=== PATIENT | female | born 1965 | race Caucasian/White ===

== ENCOUNTER → 2017-03-31 | Outpatient (CLI) | payer OTHER ==
[~2017-03-31] MED LIST: ALBUTEROL0.09 MG/A2 IH; ANAPROX DS550 MG PO; ANTIVERT/2525 M1 PO; ASPIRIN81 M1 PO; ATIVAN0.5 MG; ATIVAN1 MG PO; BACTRIM DS 8001 TA1 PO; CLARITIN10 MG PO; COMBIVENT1 ARO IH; DULE1ARO1 INH; EFFEXOR XR150 M1 PO; EFFEXOR XR75 MG PO; EFFEXOR-XR150 MG PO; FENOFIBRATE160 MG PO; FLOVENT 220 M220 MCG INH; FOLIC ACID1 MG PO; HYDROCODONE BIT1 T11 PO; KEFLEX500 MG PO; LITHIUM CARBON450 MG PO; Lovenox30 MG/0.3 SC; MEDROL DOSEPAK4 MG PO; MOTRIN800 MG PO; NAPROSYN500 MG PO; NATURE'S BLEND F1 MG PO; NUVIGIL250 MG PO; PROAIR HFA0.09 MG/AC IH; SEROQUEL25 MG PO; SEROQUEL300 MG PO; SIMVASTATIN20 MG PO; SINGULAIR10 M1 PO; SYMBICORT1 AE1 IH; TOPAMAX100 M1 PO; TOPAMAX200 MG PO; VALIUM5 MG PO; VISTARIL25 M1 PO; VITAMIN D50000 UNIT PO; Vicodin 5/500 505 MG PO; WELLBUTRIN XL300 MG PO; XARE20MG PO; XARELTO15 M1 PO; ZANTAC150 MG PO; ZITHROMAX Z PA250 MG PO; ZITHROMAX Z-PA250 MG PO; ZOFRAN4 MG PO
== END | disposition home or self-care (01) ==
LOC: CARD 11:04
DX: R07.9 Chest pain, unspecified (principal)

== ENCOUNTER → 2017-10-24 | Outpatient (CLI) | payer OTHER | END | disposition home or self-care (01) | LOC: US 07:25 | DX: K76.0 Fatty (change of) liver, not elsewhere classified (principal); Z90.49 Acquired absence of other specified parts of digestive tract ==

== ENCOUNTER 2018-01-26 19:07 | Emergency (ER) | payer OTHER ==
[~2018-01-26] VITALS: Ht 175.2 cm; Wt 122.5 kg
[2018-01-26 19:09] VITALS: BP 122/63
[2018-01-26] MEDS ORDERED: NAPROSYN500 MG PO (19:54)
[2018-01-26] MEDS ORDERED: NORCO 5-325 TA1 EACH PO (20:43)
== END 2018-01-26 20:49 | disposition home or self-care (01) ==
LOC: ED 19:07
DX: S82.832A Other fracture of upper and lower end of left fibula, initial encounter for closed fracture (principal); S92.902A Unspecified fracture of left foot, initial encounter for closed fracture; Z88.1 Allergy status to other antibiotic agents; Z79.899 Other long term (current) drug therapy; Z86.718 Personal history of other venous thrombosis and embolism; W01.0XXA Fall on same level from slipping, tripping and stumbling without subsequent striking against object, initial encounter; Y93.89 Activity, other specified; Y92.89 Other specified places as the place of occurrence of the external cause; Y99.8 Other external cause status

== ENCOUNTER → 2018-01-27 | Outpatient (CLI) | payer OTHER ==
[~2018-01-27] MED LIST changes: +NORCO 5-325 TA1 EACH PO
== END | disposition home or self-care (01) ==
LOC: RAD 08:00 → ORTHO 13:01
DX: S92.102A Unspecified fracture of left talus, initial encounter for closed fracture (principal); M19.011 Primary osteoarthritis, right shoulder; R60.9 Edema, unspecified; X58.XXXA Exposure to other specified factors, initial encounter; Y93.89 Activity, other specified; Y92.89 Other specified places as the place of occurrence of the external cause; Y99.8 Other external cause status

== ENCOUNTER → 2018-05-05 | Outpatient (CLI) | payer OTHER | END | disposition home or self-care (01) | LOC: US 12:37 | DX: I65.23 Occlusion and stenosis of bilateral carotid arteries (principal); E04.2 Nontoxic multinodular goiter; R41.3 Other amnesia ==

== ENCOUNTER 2019-05-22 10:31 | Inpatient (IN) | payer OTHER ==
[~2019-05-22] VITALS: Ht 175.2 cm; Wt 122.0 kg
--- NOTE | ~2019-05-22 | CON ---
[place], [place] REPORT OF CONSULTATION NAME: ASHLIE SOUTH UNIT #: [id number] ROOM: 416 DOCTOR: SUSAN PALACIOS MDCLAUDIA BIRTHDATE: [birth year] DOS: 05/23/2019 PULMONARY CONSULTATION, EVALUATION AND MANAGEMENT REASON FOR CONSULTATION: Assess the patient for acute exacerbation of pulmonary disease. HISTORY OF PRESENT ILLNESS: A 53-year-old white female patient who has been known to me with multiple medical problems, has been managed in the office. The patient has been admitted to the hospital under the hospitalist service as the patient has been reported progressive increased respiratory symptoms ongoing for past 1 week. She has been noted progressive chest congestion, nonproductive sputum with increasing shortness of breath, wheezing and chest tightness. The patient presented to the Emergency Room and has been admitted to the hospital under care of the primary care physician. The patient has not been reported symptoms of hemoptysis or any chest pain. She has been noted with partial reduction and improvement of respiratory symptom afterwards. REVIEW OF SYSTEMS: CONSTITUTIONAL: Fatigue and tiredness noted without any symptoms of fever or chills. EYES: Denies any burning, redness, or tenderness. EARS, NOSE, THROAT SYMPTOMS: No sore throat, otalgia, posterior drainage or epistaxis. CARDIOVASCULAR: Denies any anginal pain, edema of the lower extremities or pain. GASTROINTESTINAL: History of chronic obesity without any abnormal weight loss or dysphagia. Denied symptoms of nausea, vomiting, diarrhea, abdominal pain, hematemesis, melena, or hematochezia. CENTRAL NERVOUS SYSTEM: No dizziness, headache, diplopia or syncopal episode. SKIN: No lesions or rashes reported. MUSCULOSKELETAL: No joint pain, redness, or tenderness. Remaining systems were reviewed. They were noted all negative. PAST MEDICAL HISTORY: 1. COPD. 2. Uncomplicated moderate persistent bronchial asthma and acute allergic rhinitis. 3. Obstructive sleep apnea disorder. 4. General anxiety disorder. 5. History of depression. 6. Essential hypertension. 7. Hyperlipidemia. PAST SURGICAL HISTORY: 1. Complete hysterectomy. 2. Urinary tract infection. 3. [place] teeth removal. 4. Bilateral cataract extraction and lens implantation. [place], [place] REPORT OF CONSULTATION NAME: ASHLIE SOUTH Sandi UNIT #: [id number] ROOM: [facility] DOCTOR: SUSAN PALACIOS MDCLAUDIA BIRTHDATE: [birth year] SOCIAL HISTORY: The patient lives at home. Denies any history of alcohol use or any illicit drug use. Tobacco use was noted at the age of [age] years old, half a pack of cigarettes per day until 2009 The patient is . FAMILY HISTORY: The patient's father at 62 years with complication of coronary artery disease. Mother is living without any known medical illnesses. CURRENT MEDICATIONS: Administered were noted as Singulair, Pristiq ER, aspirin, Lovenox for DVT prophylaxis, omeprazole, trazodone, Seroquel, Solu-Medrol 40 mg q.8 hours, DuoNeb, Ativan, Rocephin, Zithromax, and some other p.r.n. meds. DRUG ALLERGIES: NOTED : 1. LEVAQUIN. 2. IODINE. PHYSICAL EXAMINATION: GENERAL: This is a 53-year-old female patient currently noted awake and alert without any distress. Height of 5 feet 9 inches, weight of 270 pounds, BMI 39.7. VITAL SIGNS: The patient has a normal temperature 99 degree Fahrenheit, respiratory rate 20-21, heart rate of 81-65, blood pressure 132/70-136/72. Pulse oxygen saturation 2.5 liters nasal cannula 93% saturation recorded. HEENT: Head is atraumatic. Eyes: Nonicterus. NECK: Supple. CARDIOVASCULAR: S1, S2 audible. LUNGS: Noted expiratory wheezing with decreased breath sounds. There were no crackles heard. ABDOMEN: Soft, obese, nontender. Bowel sounds present. EXTREMITIES: The patient with chronic obesity finding without edema, clubbing, or cyanosis. MUSCULOSKELETAL: Noted without any acute deformities. CENTRAL NERVOUS SYSTEM: Noted intact. LABORATORY DATA: CMP that was done yesterday, glucose 129, remaining CMP normal including troponin. PT/PTT yesterday normal. CBC yesterday was noted as normal CBC for patient except eosinophils of 2.3% with WBC count 7.8. Influenza A and B, nasal washing antigens were negative. CBC this morning remains normal, hemoglobin and hematocrit, WBC count. BMP: Glucose 165. Normal BUN and creatinine. PT/PTT repeated again today was negative. Chest x-ray that was done on admission reviewed from the PACS images noted without any acute pulmonary infiltrates. IMPRESSION: 1. Acute exacerbation of chronic obstructive pulmonary disease and bronchial asthma noted and acute bronchitis, possibility of viral bronchitis would be considered. 2. Chronic obesity as well. 3. History of obstructive sleep apnea disorder as well. [place], [place] REPORT OF CONSULTATION NAME: ASHLIE SOUTH UNIT #: [id number] ROOM: 416 DOCTOR: SUSAN PALACIOS MD,CLAUDIA BIRTHDATE: [birth year] PLAN OF MANAGEMENT: Continue dose of Solu-Medrol for the next 24 hours, reduction will be ordered based on improvement in the respiratory symptoms and status. In the meantime, other therapy, plan of management as in progress will be continued without any changes. Usual care. All other supportive plan of management, care plan of treatment and other therapies. Thanks for allowing me to participate in the care of this patient. CLAUDIA DAVIS MD CM:CONSTR:REPORT OF CONSULTATION 1442 05/23/19 1620 interface
--- NOTE | ~2019-05-22 | PR ---
[place], [place] PROGRESS NOTE NAME: ASHLIE SOUTH UNIT #: [id number] ROOM: 416 DOCTOR: CLAUDIA FOSTER MD BIRTHDATE: [birth year] DOS: 05/26/2019 SUBJECTIVE: She has bronchoscopy done yesterday with significant reduction in respiratory symptoms noticed, still reported symptoms of wheezing. The patient has some nonproductive cough. Denies symptoms of chest pain, hemoptysis. Denies symptoms of headache or diplopia, nausea, vomiting, diarrhea, abdominal pain, hematemesis, or melena. Denies symptoms of dizziness. Remaining systems were reviewed, they were noted all negative. OBJECTIVE: VITAL SIGNS: For the patient this morning, normal temperature, respiratory rate 20, heart rate 72, blood pressure 152/80. Pulse ox saturation on 2 liters nasal cannula 93% saturation recorded. HEENT: Examination shows head was atraumatic. Eyes nonicterus. NECK: Supple. CARDIOVASCULAR: S1, S2 audible. LUNGS: Noted with expiratory wheezing. There were no crackles. ABDOMEN: Soft, obese, nontender. Bowel sounds present. EXTREMITIES: No acute changes. MUSCULOSKELETAL: Without acute deformities. CENTRAL NERVOUS SYSTEM: The patient noted intact. LABORATORY DATA: The Gram stain of the bronchial wash, many white blood cell, few epithelial cells, few gram-positive cocci in pairs and clusters. IMPRESSION: The patient with ongoing acute exacerbation of chronic obstructive pulmonary disease, bronchial asthma, mucus impaction, status post bronchoscopy, reduction in wheezing, reduction of the respiratory symptom, coughing. The wheezing has been still noted, not completely resolved. The culture noted normal tamera. PLAN OF MANAGEMENT: No changes in plan of management at this time. Continue current plan of management, monitor culture results. Bronchodilators. Possible discharge home for the patient may be considered in the morning. Dose of Solu-Medrol will be decreased to 40 mg b.i.d. dosing. [place], [place] PROGRESS NOTE NAME: ASHLIE SOUTH UNIT #: [id number] ROOM: 416 DOCTOR: CLAUDIA FOSTER MD BIRTHDATE: [birth year] CLAUDIA DAVIS MD CM:PNTRANS [id number] CLAUDIA PALACIOS MD 05/26/19 1509 interface
--- NOTE | ~2019-05-22 | PROC NOTE ---
[place], [place] PROCEDURE NOTE NAME: ASHLIE SOUTH UNIT #: [id number] ROOM: 416 DOCTOR: SUSAN PALACIOS MD,CLAUDIA BIRTHDATE: [birth year] DOS: 05/25/2019 PREOPERATIVE DIAGNOSIS: Severe nonresolving cough, which was nonproductive. POSTOPERATIVE DIAGNOSES: Severe impacted mucus noted with ongoing inflammatory changes and friable mucosa, no endobronchial lesions. COMPLICATIONS: None. PROCEDURE DESCRIPTION: Informed consent obtained with the patient. The patient brought to the OR. The patient was placed in a supine position. Conscious sedation was administered by the Anesthesia Department. After achieving proper sedation, airway introduced into the mouth. Bronchoscope advanced to airway into laryngeal area. Epiglottis and vocal cords were seen. Vocal cords were moving symmetrically with movements. Bronchoscope advanced through the vocal to the tracheal lumen noted with moderate amount of thick mucus secretion with some bilious secretion through the gita level. Right upper, right middle, right lower, left upper, lingula, lower bronchi all impacted. Thick plugs of the mucus significant friability of mucosa noted, especially in the left main stem bronchus at the bronchial openings. All the mucus plug cleared up with half normal saline wash without any difficulty. Some bleeding was noted because of agitation, friability of mucosa. A 5 mL of 1:10,000 epinephrine was lavaged that area. The patient does not have any bleeding actively prior to withdrawal of the bronchoscope. Procedure well tolerated. Postoperative findings will be discussed with the patient once the patient noted with resolution of the effects of conscious sedation. CLAUDIA DAVIS MD CM:PROCNOTE:PROCEDURE NOTE [id number] CLAUDIA PALACIOS MD
--- NOTE | ~2019-05-22 | PR ---
[place], [place] PROGRESS NOTE NAME: ASHLIE SOUTH UNIT #: [id number] ROOM: 416 DOCTOR: CLAUDIA FOSTER MD BIRTHDATE: [birth year] DOS: 05/24/2019 SUBJECTIVE: The patient's overall condition remains the same but noted severe cough, currently complaining of headache because of nonproductive cough. Denies symptoms of fever, chills. Chest pain, the patient reported just because of the cough. Wheezing and shortness of breath remains unchanged. Denies symptoms of headache or diplopia. Denies symptoms of nausea, vomiting, diarrhea, abdominal pain, hematemesis, melena, or hematochezia. She denies symptoms of diplopia. Remaining systems were reviewed, they were noted all negative. OBJECTIVE: VITAL SIGNS: Vital signs, which are recorded, shows normal temperature, respiratory rate 20, heart rate 66, blood pressure 135/63. Pulse oxygen saturation on 3.5 liters nasal cannula 95% saturation recorded. HEENT: Examination shows head was atraumatic. Eyes nonicterus. NECK: Supple. CARDIOVASCULAR: S1, S2 audible. LUNGS: Noted expiratory wheezing with decreased breath sounds bilaterally. There were no crackles. ABDOMEN: Soft, nontender. Bowel sounds present. EXTREMITIES: No acute change. IMPRESSION: 1. Stable respiratory status, noted the same respiratory status, nonproductive cough at this time with ongoing acute exacerbation of chronic obstructive pulmonary disease and bronchial asthma. 2. Obstructive sleep apnea disorder. PLAN OF MANAGEMENT: The patient was suggested therapeutic bronchoscopy for assessment of current severe nonproductive cough and to clear the mucus impaction in major airways. The patient agreed for the procedure. Procedure was scheduled to be done tomorrow morning. [place], [place] PROGRESS NOTE NAME: ASHLIE SOUTH UNIT #: [id number] ROOM: 416 DOCTOR: CLAUDIA FOSTER MD BIRTHDATE: [birth year] CLAUDIA DAVIS MD CM:PNTRANS [id number] CLAUDIA PALACIOS MD 05/24/19 6290 interface
--- NOTE | ~2019-05-22 | EKG ---
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
--- NOTE | ~2019-05-22 | PR ---
[place], [place] PROGRESS NOTE NAME: ASHLIE SOUTH UNIT #: [id number] ROOM: 416 DOCTOR: CLAUDIA FOSTER MD BIRTHDATE: [birth year] DOS: 05/25/2019 SUBJECTIVE: The patient was noted comfortable at this time without any acute distress this morning of assessment. She has been noted similar symptoms of nonproductive cough, which remains severe. Denies symptoms of fever or chills. Headache was still noted with coughing. Denies symptoms of diplopia. Denies nausea, vomiting, diarrhea, abdominal pain, hematemesis, and melena. She is n.p.o. past midnight for bronchoscopy that was planned to be done today. The review of system otherwise noted is negative. OBJECTIVE: VITAL SIGNS: For the patient, which are recorded showed the temperature noted as normal. The respiratory rate recorded as 20, heart rate of 79, blood pressure 140/86. Pulse oxygen saturation on 3 liters nasal cannula 95% saturation. HEAD, EYES, EARS, NOSE, AND THROAT: Examination shows head was atraumatic. Eyes nonicterus. NECK: Supple. CARDIOVASCULAR SYSTEM: S1, S2 audible. LUNGS: Noted with expiratory wheezing, no crackles. ABDOMEN: Soft with chronic obesity. Bowel sounds present. EXTREMITIES: Without acute edema. MUSCULOSKELETAL: Without acute deformity. LABORATORY DATA: The patient's CBC today noted essentially normal. BMP this morning, glucose mildly elevated at 162. Remaining CMP was normal. IMPRESSION: 1. Acute severe tracheobronchitis with acute exacerbation of chronic obstructive pulmonary disease secondary to cough 2. Chronic obesity. 3. History of obstructive sleep apnea disorder. PLAN OF MANAGEMENT: No change in plan of care, proceed with the fibrobronchoscopy that was planned to be done today. In the meantime, continue other therapy, plan of management, plan of care, plan of treatment, therapy. Usual care. Any modification treatment if necessary will be ordered after the bronchoscopy. [place], [place] PROGRESS NOTE NAME: ASHLIE SOUTH UNIT #: [id number] ROOM: 416 DOCTOR: CLAUDIA FOSTER MD BIRTHDATE: [birth year] CLAUDIA DAVIS MD CM:PNSAMSON [id number] CLAUDIA PALACIOS MD 05/25/19 1526 interface
[~2019-05-22 10:31] MED LIST changes: +ASPIR 8181 MG PO; +LORAZEPAM1 MG PO; +PRILOSEC20 M1 PO; +PRISTIQ ER25 MG PO; +PROAIR HFA8.5 GM INH; +SEROQUEL100 MG PO; +TRAZODONE100 MG PO; +VITAMIN D32000 UNI1 PO
[2019-05-22 10:37] VITALS: BP 195/95
[2019-05-22 11:10] LABS: BASO # 0.1 10*3/uL (0.0-0.1); BASO % 0.6 % (0.0-1.0); EOS # 0.2 10*3/uL (0.0-0.4); EOS % 2.3 % (1.0-4.0); HEMATOCRIT 43.1 % (37.0-47.0); HEMOGLOBIN 13.6 g/dl (12.0-16.0); LYMPH # 3.1 10*3/uL (1.3-4.4); LYMPH % 39.7 % (27.0-41.0); MEAN CELL VOLUME 87.1 fl (81.0-99.0); MEAN CORPUSCULAR HGB 27.5 pg (27.0-31.0); MEAN CORPUSCULAR HGB CONC 31.6 g/dl (33.0-37.0); MEAN PLATELET VOLUME 9.1 fl (9.6-12.3); MONO # 0.4 10*3/uL (0.1-1.0); MONO % 5.1 % (3.0-9.0); NEUT # 4.1 10*3/uL (2.3-7.9); PLATELET COUNT AUTOMATED 299 10*3/uL (130-400); RED BLOOD COUNT 4.95 10*6/uL (4.10-5.10); WHITE BLOOD COUNT 7.8 10*3/uL (4.8-10.8)
[2019-05-22 11:17] LABS: INTERNATIONAL NORM RATIO 0.9 (2.0-3.5)
[2019-05-22 11:25] LABS: ALBUMIN 3.9 gm/dl (3.1-4.5); ALKALINE PHOSPHATASE 103 U/L (45-117); BUN 12 mg/dl (7-24); CHLORIDE 106 mmol/L (98-107); CREATININE 0.81 mg/dL (0.55-1.02); POTASSIUM 4.3 mmol/L (3.5-5.1); SGOT/AST 16 IU/L (3-35); SGPT/ALT 24 U/L (12-78); SODIUM 139 mmol/L (136-145); TOTAL PROTEIN 7.5 gm/dL (6.4-8.2)
[2019-05-22 11:30] LABS: TROPONIN I < 0.015 ng/ml (<0.045)
[2019-05-22 12:01] VITALS: BP 110/79
[2019-05-22 14:25] VITALS: BP 134/66
[2019-05-22] MEDS ORDERED: PREDNISONE20 M1 PO (14:29)
[2019-05-22] MEDS ORDERED: VIBRAMYCIN100 MG PO (14:30)
[2019-05-22] MEDS ORDERED: Ipratropium Brom3 ML INH (14:34)
--- NOTE | 2019-05-22 14:43 | NUR ---
PT AMBULATED TO NURSES STATION SAYING "I CAN'T FIND MY WALLET IN MY PURSE AND I NEVER TAKE MY WALLET OUT OF MY PURSE." WHEN AMBULATING BACK TO ROOM 2 PT BECAME INCREASINGLY SOB AND DECIDED INSTEAD OF GOING HOME WOULD LIKE TO BE ADMITTED. DR SPANGLER AWARE. RN AND PT LOOKED IN ROOM 2 AND NOT ABLE TO OBTAIN WALLET. PT STATES "I AM NOT SURE WHERE I LEFT IT AND CAN'T GET A HOLD OF MY SON WHO HAS MY CAR."
[2019-05-22 14:48] VITALS: BP 142/70
--- NOTE | 2019-05-22 15:26 | NUR ---
PT STATES 'I THINK MY SON MIGHT OF TAKEN MY WALLET OUT OF MY PURSE BEFORE I CAME INTO THE HOSPITAL."
--- NOTE | 2019-05-22 15:45 | NUR ---
A 53, admitted to , under the services of RAY Yañez DO with a diagnosis of COPD EXAC. Chief complaint is SHORTNES OF BREATH. Patient arrived via stretcher from ER. Monitor applied. Initial assessment completed. Vital signs taken and recorded. RAY YAÑEZ DO notified of admission to the unit. Orders received. See assessment for past medical history, medications and allergies. Patient and/or family oriented to unit. [address] visitation policy reviewed. Clothing/patient valuable form completed. ELA RYAN
[2019-05-22 16:00] VITALS: BP 137/74
--- NOTE | 2019-05-22 16:08 | NUR ---
DR DAVIS NOTIFIED OF CONSULT.
--- NOTE | 2019-05-22 16:11 | NUR ---
MED REC UPDATED PER PT. DR VALLES NOTIFIED.
--- NOTE | 2019-05-22 18:35 | NUR ---
PT HAD CALL LIGHT ON, UPON ENTERINMG ROOM. PT VERY SHORT OF BREATH. [address] VALLES NOTIFIED, ABG ORDERED.
--- NOTE | 2019-05-22 19:08 | NUR ---
ATIVAN PO GIVEN FOR C/O ANXIETY. CALL LIGHT IN REACH. WILL MONITOR
[2019-05-22 20:00] VITALS: BP 134/67
[2019-05-22 20:15] LABS: ABG BASE EXCESS 1.1 mmol/L (-2.0-2.0); ABG HCO3 25.1 mmol/l (22-26); ABG O2 SATURATION 96.2 % (95-97); ARTERIAL BLOOD GAS PCO2 39.1 mmHg (35-45); ARTERIAL BLOOD GAS PH 7.422 (7.35-7.45); ARTERIAL BLOOD GAS PO2 74.2 mmHg (80-90)
[2019-05-23] VITALS: BP 122/70
[2019-05-23 06:09] LABS: BASO % 0.2 % (0.0-1.0); BUN 16 mg/dl (7-24); CHLORIDE 105 mmol/L (98-107); CHOLESTEROL 167 mg/dL (<200); CREATININE 0.73 mg/dL (0.55-1.02); EOS # 0.2 10*3/uL (0.0-0.4); HEMATOCRIT 38.5 % (37.0-47.0); HEMOGLOBIN 12.3 g/dl (12.0-16.0); LYMPH # 1.1 10*3/uL (1.3-4.4); LYMPH % 18.4 % (27.0-41.0); MEAN CELL VOLUME 85.4 fl (81.0-99.0); MEAN CORPUSCULAR HGB 27.3 pg (27.0-31.0); MEAN CORPUSCULAR HGB CONC 31.9 g/dl (33.0-37.0); MEAN PLATELET VOLUME 9.4 fl (9.6-12.3); MONO # 0.1 10*3/uL (0.1-1.0); MONO % 1.5 % (3.0-9.0); NEUT # 4.6 10*3/uL (2.3-7.9); NEUT % 76.2 % (47.0-73.0); PLATELET COUNT AUTOMATED 280 10*3/uL (130-400); POTASSIUM 3.8 mmol/L (3.5-5.1); RED BLOOD COUNT 4.51 10*6/uL (4.10-5.10); RED CELL DISTRI WIDTH 14.1 % (0-14.5); SODIUM 138 mmol/L (136-145); TRIGLYCERIDES 82 mg/dl (<150); VLDL CHOLESTEROL 16 mg/dL (6-40)
[2019-05-23 06:17] LABS: HDL CHOLESTEROL 66 mg/dl (40-60); LDL CHOLESTEROL 85 mg/dL (9-159); THYROID STIM HORMONE (HS) 0.242 uIU/ml (0.358-4.75)
[2019-05-23 06:31] LABS: ACT PARTIAL THROMBO TIME 25.3 SECONDS (20.0-32.1); INTERNATIONAL NORM RATIO 0.9 (2.0-3.5)
[2019-05-23 08:19] LABS: VITAMIN D, 25-HYDROXY 29.3 ng/mL (30-100)
--- NOTE | 2019-05-23 08:26 | NUR ---
PT REQUESTED AND WAS MEDICATED WITH NORCO FOR C/O HEADACHE. DYSPNEA WITH EXERTION STILL NOTED. O2 3L IN PLACE. CALL LIGHT IN REACH. WILL MONITOR
--- NOTE | 2019-05-23 09:30 | NUR ---
MEDICATION EFFECTIVE PER PT. CALL LIGHT IN REACH. WILL MONITOR
[2019-05-23 12:00] VITALS: BP 136/72
--- NOTE | 2019-05-23 13:45 | NUR ---
PEBBLES EFFECTIVE PER PT. CALL LIGHT IN REACH. WILL MONITOR
[2019-05-23 16:00] VITALS: BP 119/61
--- NOTE | 2019-05-23 16:31 | NUR ---
PT REQUESTED AND WAS MEDICATED WITH NORCO FOR C/O HEADACHE. CALL LIGHT IN REACH. WILL MONITOR
--- NOTE | 2019-05-23 17:30 | NUR ---
MEDICATION EFECTIVE. CALL LIGHT IN REACH. WILL MONITOR
[2019-05-23 20:00] VITALS: BP 124/62
--- NOTE | 2019-05-23 21:00 | NUR ---
PATIENT LAYING IN BED WATCHING TV. PRN NORCO GIVEN FOR C/O HEADACHE PER REQUEST. PATIENT CONTINUES ON 3 L NC. WHEEZES HEARD IN RIGHT LUNG. DIMINISHED LUNG SOUNDS HEARD ON LEFT. BS NORMOACTIVE X4. LAST BOWEL MOVEMENT ON 05/20. PER PATIENT THIS IS NORMAL FOR HER TO GO 3-4 DAYS WITHOUT A BOWEL MOVEMENT. CALL LIGHT WITHIN REACH.
--- NOTE | 2019-05-23 21:45 | NUR ---
PRN NORCO EFFECTIVE PER PATIENT.
--- NOTE | 2019-05-23 22:47 | NUR ---
24 HR chart check completed.
[2019-05-24] VITALS: BP 119/61
--- NOTE | 2019-05-24 06:20 | NUR ---
PATIENT LAYING IN BED ON 3 L NC. NO ACUTE DISTRESS NOTED. NO OTHER COMPLAINTS AT THIS TIME. CALL LIGHT WITHIN REACH.
[2019-05-24 08:00] VITALS: BP 135/63
--- NOTE | 2019-05-24 09:00 | NUR ---
Checker Loader in to talk to patient. Patient states lives at home with son. There are few steps in the home. Physician: jessee campos Pharmacy: [facility] services: none Patient's level of ADLs: INDEPENDENT Patient has working utilities: all working DME: none Follow-up physician's appointment after d/c: will be made by hospitalist nurse director upon discharge Does patient want to access PORTAL?: no] Discharge plan discussed with patient, she states she lives at home with her son, is independent in adls and ambulation, she states she will be returning home when medically stable and denies any home needs. RAMEZ VARNER
--- NOTE | 2019-05-24 10:43 | NUR ---
PT DECLINES TO AMBULATE IN HALLS AT THIS TIME. SHE STATES SHE'S "TOO TIRED" WILL ATTEMPT AGAIN LATER. CALL LIGHT IN REACH. WILL MONITOR
[2019-05-24 12:00] VITALS: BP 129/54
--- NOTE | 2019-05-24 14:00 | NUR ---
PT REQUESTED AND WAS MEDICATED WITH NORCO FOR C/O HEADACHE. CALL LIGHT IN REACH. WILL MONITOR
[2019-05-24 16:00] VITALS: BP 143/63
--- NOTE | 2019-05-24 16:28 | NUR ---
uP ON bsc bathing, harsh BS . face flushed.
--- NOTE | 2019-05-24 19:32 | NUR ---
PATIENT SITTING UP IN BED ON 3 L NC. PATIENT STATED SHE DID NOT WALK TODAY WITH RESPIRATORY BECAUSE IT TOOK EVERYTHING OUT OF HER TO WALK TO THE BATHROOM AND GET CLEANED UP. PRN NORCO GIVEN FOR C/O A HEADACHE. WILL MONITOR FOR EFFECTIVENESS. CALL LIGHT WITHIN REACH.
[2019-05-24 20:00] VITALS: BP 132/64
--- NOTE | 2019-05-24 20:20 | NUR ---
PRN NORCO EFFECTIVE PER PATIENT.
--- NOTE | 2019-05-24 23:00 | NUR ---
REPORT RECIEVED. PT SLEEPING AT THIS TIME. O2 INTACT. RESPIRATIONS EASY AND UNLABORED. CALL LIGHT IN REACH.
[2019-05-25] VITALS (9 sets, daily range): BP systolic 99–137; BP diastolic 53–98
--- NOTE | 2019-05-25 00:40 | NUR ---
24 HR chart check completed.
--- NOTE | 2019-05-25 00:53 | NUR ---
24 HR chart check completed.
--- NOTE | 2019-05-25 01:00 | NUR ---
PT SLEEPING AT THIS TIME. O2 INTACT. CALL LIGHT IN REACH.
--- NOTE | 2019-05-25 03:00 | NUR ---
PT IS SLEEPING
--- NOTE | 2019-05-25 05:03 | NUR ---
PT WATCHING TV, LYING IN BED AT THIS TIME. RESPIRATIONS EASY AND UNLABORED. NC INTACT. CALL LIGHT IN REACH.
--- NOTE | 2019-05-25 05:46 | NUR ---
PT MEDICATED WITH NORCO PER ORDER FOR COMPLAINT OF GENERALIZED PAIN. WILL MONITOR EFFECTIVENESS.
[2019-05-25 06:06] LABS: BASO % 0.1 % (0.0-1.0); HEMOGLOBIN 11.7 g/dl (12.0-16.0); LYMPH # 1.4 10*3/uL (1.3-4.4); MEAN CELL VOLUME 88.4 fl (81.0-99.0); MEAN CORPUSCULAR HGB 27.2 pg (27.0-31.0); MEAN CORPUSCULAR HGB CONC 30.8 g/dl (33.0-37.0); MEAN PLATELET VOLUME 9.6 fl (9.6-12.3); MONO # 0.4 10*3/uL (0.1-1.0); MONO % 4.4 % (3.0-9.0); NEUT # 7.7 10*3/uL (2.3-7.9); PLATELET COUNT AUTOMATED 277 10*3/uL (130-400); RED CELL DISTRI WIDTH 14.5 % (0-14.5); WHITE BLOOD COUNT 9.6 10*3/uL (4.8-10.8)
[2019-05-25 06:15] LABS: BUN 23 mg/dl (7-24); CHLORIDE 105 mmol/L (98-107); POTASSIUM 4.3 mmol/L (3.5-5.1); SODIUM 139 mmol/L (136-145)
--- NOTE | 2019-05-25 09:00 | NUR ---
case management visits with patient, she states she will return home when medically stable and denies any home needs
--- NOTE | 2019-05-25 10:17 | NUR ---
PT REQUESTED AND WAS MEDICATED WITH NORCO FOR C/O HEADACHE. CALL LIGHT IN REACH. WILL MONITOR
--- NOTE | 2019-05-25 14:24 | NUR ---
PHYSICAL THERAPY Eval completed see report moderate level of complexity 22078 recommend SNF vs Inpt rehab at discharge as well as OT consult for energy conservation. PT to work on transfers, gait, strength and endurance stair as/if approp. thanks Anni Lovell PT
--- NOTE | 2019-05-25 19:10 | NUR ---
REPORT RECEIVED FROM LILA MEDINA. PT AWAKE AT THIS TIME. RESPIRATIONS EASY AND UNLABORED. NO COMPLAINTS AT THIS TIME.
[2019-05-26] VITALS: BP 105/41
--- NOTE | 2019-05-26 01:24 | NUR ---
Patient resting quietly with no c/o discomfort. Respirations easy and regular. Vital signs stable. No overt distress. OXYGEN ON 3L VIA NC. CALL LIGHT WITHIN REACH HISSOM,STEPHANIE
--- NOTE | 2019-05-26 01:57 | NUR ---
24 HR chart check completed.
--- NOTE | 2019-05-26 04:17 | NUR ---
Patient sleeping. Respirations relaxed and easy. [place] up . [place] on. BED ALARM ON. OXYGEN 3L VIA NASAL CANNULA INTACT. CALL LIGHT WITHIN REACH HISSOM,STEPHANIE
[2019-05-26 08:00] VITALS: BP 134/74; BP 152/80
--- NOTE | 2019-05-26 09:00 | NUR ---
case management visits with patient, discussed with her physical therapy recommendation that she go to a short term halfway for rehab prior to returning home, patient declined, stated she was ambulating fine and had family at home to care for her, also discussed VNA and she also declines this, case management will follow
--- NOTE | 2019-05-26 09:45 | NUR ---
PHYSICAL THERAPY Patient seen this am 1;1 for therapy visit and was standing in hallway [facility] Respiratory visit upon therapist arrival. Patient identified by name / and reports no new c/o's at this time. Patient ambulates without AD, ad mic in hallway, > 150'x 1, SBA, demonstrating slow, cautious gait pattern. Patient also demonstrated improved upright posture and returned to EOB sit with mild fatigue. Patient SpO2 92% on O2-2L via NC and remained EOB with call light, tray table, and cell phone. Will continue per POC as tolerated, total treatment time 14 minutes. Kolby Garcia, INSURANCE ANALYST
[2019-05-26] MEDS ORDERED: PREDNISONE10 MG PO (11:23)
[2019-05-26] MEDS ORDERED: OXYGEN NAS (11:23)
[2019-05-26] MEDS ORDERED: VITAMIN D32000 UNI1 PO (11:23)
[2019-05-26] MEDS ORDERED: DOXYCYCLINE100 M3 PO (11:23)
--- NOTE | 2019-05-26 11:42 | NUR ---
PULSE OX ON R/A AT REST 88%, PT. AMBULATED IN [place] ON 2L, PULSE OX 90 TO 92%. PT. TOLERATED WELL, RECOVERY PULSE OX WAS 93% ON 2 AT REST, HEART RATE 77. B/P PRIOR TO WALK 152/80 AND AFTER WALK 132/73. RN AND DR. BURGOS NOTIFIED. O2 WILL BE SET UP WITH [facility], PT HAS A CPAP WITH [facility] ALREADY.
[2019-05-26 12:00] VITALS: BP 143/81
--- NOTE | 2019-05-26 12:30 | NUR ---
O2 ORDER WAS SENT TO MEDICAL SERVICE, DUE TO PT.'s INSURANCE. RN NOTIFIED. ALL PAPERWORK FAXED.
[2019-05-26 16:00] VITALS: BP 152/82
--- NOTE | 2019-05-26 16:35 | NUR ---
Discharge instructions reviewed with patient/family. Patient receptive and verbalizes understanding. Follow-up care arranged. Written instructions given to patient/family. HEPLOCK DISCONTINUED. OXYGEN DELIVERED TO ROOM AND HOME. PATIENT TAKEN OFF FLOOR VIA WHEELCHAIR. QUINTEN DICKINSON
[2019-05-26 17:08] LABS: ACID FAST SPEC PROCESSING Concentration (.)
--- NOTE | 2019-05-27 08:14 | NUR ---
PHYSICAL THERAPY CO-SIGN I approve of the Physical Therapy notes written above. Anni Lovell PT
[2019-06-07 11:06] LABS: ORGANISM ID, MOLD Preliminary report (.)
== END 2019-05-26 16:35 | disposition home or self-care (01) | DRG 140 ==
LOC: ED 10:31 → EDHOLD 14:45 → 4E 14:45
PROVIDERS: Emergency Medicine; Family Medicine; Internal Medicine; Internal Medicine Critical Care Medicine; ADMIT Internal Medicine
PROC: 3E0F8GC Introduction of Other Therapeutic Substance into Respiratory Tract, Via Natural or Artificial Opening Endoscopic (ICD-10-PCS; principal; 2019-05-25)
PROC: 0BC18ZZ Extirpation of Matter from Trachea, Via Natural or Artificial Opening Endoscopic (ICD-10-PCS; 2019-05-25)
PROC: 0BC98ZZ Extirpation of Matter from Lingula Bronchus, Via Natural or Artificial Opening Endoscopic (ICD-10-PCS; 2019-05-25)
PROC: 0BC48ZZ Extirpation of Matter from Right Upper Lobe Bronchus, Via Natural or Artificial Opening Endoscopic (ICD-10-PCS; 2019-05-25)
PROC: 0BC88ZZ Extirpation of Matter from Left Upper Lobe Bronchus, Via Natural or Artificial Opening Endoscopic (ICD-10-PCS; 2019-05-25)
PROC: 0BC58ZZ Extirpation of Matter from Right Middle Lobe Bronchus, Via Natural or Artificial Opening Endoscopic (ICD-10-PCS; 2019-05-25)
PROC: 0BC38ZZ Extirpation of Matter from Right Main Bronchus, Via Natural or Artificial Opening Endoscopic (ICD-10-PCS; 2019-05-25)
PROC: 0BC78ZZ Extirpation of Matter from Left Main Bronchus, Via Natural or Artificial Opening Endoscopic (ICD-10-PCS; 2019-05-25)
PROC: 0BC68ZZ Extirpation of Matter from Right Lower Lobe Bronchus, Via Natural or Artificial Opening Endoscopic (ICD-10-PCS; 2019-05-25)
PROC: 0BCB8ZZ Extirpation of Matter from Left Lower Lobe Bronchus, Via Natural or Artificial Opening Endoscopic (ICD-10-PCS; 2019-05-25)
DX: J44.0 Chronic obstructive pulmonary disease with (acute) lower respiratory infection (principal); J18.9 Pneumonia, unspecified organism; J96.00 Acute respiratory failure, unspecified whether with hypoxia or hypercapnia; J44.1 Chronic obstructive pulmonary disease with (acute) exacerbation; I10 Essential (primary) hypertension; R73.9 Hyperglycemia, unspecified; D64.9 Anemia, unspecified; K21.9 Gastro-esophageal reflux disease without esophagitis; F31.9 Bipolar disorder, unspecified; J45.41 Moderate persistent asthma with (acute) exacerbation; F41.0 Panic disorder [episodic paroxysmal anxiety]; J20.9 Acute bronchitis, unspecified; G47.33 Obstructive sleep apnea (adult) (pediatric); E66.9 Obesity, unspecified; E55.9 Vitamin D deficiency, unspecified; G47.00 Insomnia, unspecified; F17.210 Nicotine dependence, cigarettes, uncomplicated; Z71.6 Tobacco abuse counseling; Z88.1 Allergy status to other antibiotic agents; Z91.041 Radiographic dye allergy status; Z86.718 Personal history of other venous thrombosis and embolism; Z90.49 Acquired absence of other specified parts of digestive tract; Z90.710 Acquired absence of both cervix and uterus; Z98.51 Tubal ligation status; Z82.49 Family history of ischemic heart disease and other diseases of the circulatory system; Z82.5 Family history of asthma and other chronic lower respiratory diseases; Z79.82 Long term (current) use of aspirin; Z79.899 Other long term (current) drug therapy; Z87.440 Personal history of urinary (tract) infections; Z68.39 Body mass index [BMI] 39.0-39.9, adult

== ENCOUNTER 2020-04-07 16:18 | Emergency (ER) | payer OTHER ==
[~2020-04-07] VITALS: Ht 175.2 cm; Wt 122.5 kg
[~2020-04-07 16:18] MED LIST changes: +DOXYCYCLINE100 M3 PO; +Ipratropium Brom3 ML INH; +OXYGEN NAS; +PREDNISONE10 MG PO; +PREDNISONE20 M1 PO; +VIBRAMYCIN100 MG PO
[2020-04-07 16:26] VITALS: BP 137/73
== END 2020-04-07 17:24 | disposition home or self-care (01) ==
LOC: ED 16:18
DX: J06.9 Acute upper respiratory infection, unspecified (principal); R05 Cough; M79.10 Myalgia, unspecified site; J44.9 Chronic obstructive pulmonary disease, unspecified; K21.9 Gastro-esophageal reflux disease without esophagitis; I10 Essential (primary) hypertension; F31.9 Bipolar disorder, unspecified; Z20.828 Contact with and (suspected) exposure to other viral communicable diseases; Z88.8 Allergy status to other drugs, medicaments and biological substances; Z91.041 Radiographic dye allergy status; Z79.899 Other long term (current) drug therapy; Z79.82 Long term (current) use of aspirin; Z90.49 Acquired absence of other specified parts of digestive tract; Z90.710 Acquired absence of both cervix and uterus

== ENCOUNTER → 2020-08-04 | Outpatient (CLI) | payer OTHER ==
[2020-08-04 14:48] LABS: HEMATOCRIT 39.3 % (37.0-47.0); MEAN CELL VOLUME 89.5 fl (81.0-99.0); MEAN CORPUSCULAR HGB 28.2 pg (27.0-31.0); MEAN CORPUSCULAR HGB CONC 31.6 g/dl (33.0-37.0); MEAN PLATELET VOLUME 8.9 fl (9.6-12.3); RED BLOOD COUNT 4.39 10*6/uL (4.10-5.10); RED CELL DISTRI WIDTH 13.2 % (0-14.5); WHITE BLOOD COUNT 7.5 10*3/uL (4.8-10.8)
[2020-08-04 15:20] LABS: ALBUMIN 3.8 gm/dl (3.1-4.5); ALKALINE PHOSPHATASE 94 U/L (45-117); BUN 14 mg/dl (7-24); CHLORIDE 106 mmol/L (98-107); CREATININE 0.91 mg/dL (0.55-1.02); POTASSIUM 4.3 mmol/L (3.5-5.1); SGOT/AST 16 IU/L (3-35); SGPT/ALT 31 U/L (12-78); SODIUM 139 mmol/L (136-145); TOTAL PROTEIN 7.4 gm/dL (6.4-8.2)
== END | disposition home or self-care (01) ==
LOC: LAB 14:15
PROVIDERS: ATTEND Registered Nurse Psychiatric/Mental Health
DX: F31.81 Bipolar II disorder (principal)

== ENCOUNTER → 2020-08-25 | Outpatient (CLI) | payer OTHER | END | disposition home or self-care (01) | LOC: LAB 09:17 | PROVIDERS: ATTEND Registered Nurse Psychiatric/Mental Health | DX: F31.81 Bipolar II disorder (principal) ==

== ENCOUNTER → 2020-09-12 | Outpatient (CLI) | payer OTHER | END | disposition home or self-care (01) | LOC: LAB 12:04 | PROVIDERS: ATTEND Registered Nurse Psychiatric/Mental Health | DX: F31.81 Bipolar II disorder (principal) ==

== ENCOUNTER → 2020-12-27 | Outpatient (CLI) | payer OTHER ==
[2020-12-27 09:04] LABS: BASO # 0.1 10*3/uL (0.0-0.1); BASO % 0.9 % (0.0-1.0); EOS # 0.1 10*3/uL (0.0-0.4); EOS % 1.5 % (1.0-4.0); HEMATOCRIT 40.3 % (37.0-47.0); LYMPH # 2.9 10*3/uL (1.3-4.4); LYMPH % 43.9 % (27.0-41.0); MEAN CELL VOLUME 91.2 fl (81.0-99.0); MEAN CORPUSCULAR HGB 28.3 pg (27.0-31.0); MEAN PLATELET VOLUME 8.9 fl (9.6-12.3); MONO # 0.4 10*3/uL (0.1-1.0); MONO % 6.5 % (3.0-9.0); NEUT % 46.7 % (47.0-73.0); PLATELET COUNT AUTOMATED 266 10*3/uL (130-400); RED BLOOD COUNT 4.42 10*6/uL (4.10-5.10); WHITE BLOOD COUNT 6.5 10*3/uL (4.8-10.8)
[2020-12-27 09:32] LABS: ALBUMIN 3.4 gm/dl (3.1-4.5); ALKALINE PHOSPHATASE 81 U/L (45-117); BUN 14 mg/dl (7-24); CHLORIDE 109 mmol/L (98-107); CHOLESTEROL 316 mg/dL (<200); POTASSIUM 4.2 mmol/L (3.5-5.1); SGOT/AST 11 IU/L (3-35); SGPT/ALT 31 U/L (12-78); SODIUM 141 mmol/L (136-145); TOTAL PROTEIN 7.4 gm/dL (6.4-8.2); TRIGLYCERIDES 406 mg/dl (<150)
== END | disposition home or self-care (01) ==
LOC: LAB 08:46
PROVIDERS: ATTEND Nurse Practitioner Family
DX: K21.9 Gastro-esophageal reflux disease without esophagitis (principal); I10 Essential (primary) hypertension; E66.01 Morbid (severe) obesity due to excess calories; Z68.41 Body mass index [BMI] 40.0-44.9, adult

== ENCOUNTER 2021-01-13 10:51 | Emergency (ER) | payer OTHER ==
[~2021-01-13] VITALS: Ht 175.2 cm; Wt 133.4 kg
[2021-01-13 11:33] LABS: BASO % 0.6 % (0.0-1.0); EOS # 0.1 10*3/uL (0.0-0.4); EOS % 1.4 % (1.0-4.0); HEMATOCRIT 38.4 % (37.0-47.0); LYMPH # 2.7 10*3/uL (1.3-4.4); LYMPH % 38.9 % (27.0-41.0); MEAN CELL VOLUME 88.9 fl (81.0-99.0); MEAN CORPUSCULAR HGB 28.7 pg (27.0-31.0); MEAN CORPUSCULAR HGB CONC 32.3 g/dl (33.0-37.0); MEAN PLATELET VOLUME 8.9 fl (9.6-12.3); MONO # 0.5 10*3/uL (0.1-1.0); MONO % 7.1 % (3.0-9.0); NEUT # 3.6 10*3/uL (2.3-7.9); NEUT % 51.6 % (47.0-73.0); PLATELET COUNT AUTOMATED 291 10*3/uL (130-400); RED BLOOD COUNT 4.32 10*6/uL (4.10-5.10); RED CELL DISTRI WIDTH 13.8 % (0-14.5)
[2021-01-13 11:48] LABS: ALBUMIN 3.6 gm/dl (3.1-4.5); ALKALINE PHOSPHATASE 77 U/L (45-117); BUN 14 mg/dl (7-24); CHLORIDE 110 mmol/L (98-107); CREATININE 0.79 mg/dL (0.55-1.02); LIPASE 82 U/L (73-393); POTASSIUM 3.7 mmol/L (3.5-5.1); SGOT/AST 13 IU/L (3-35); SGPT/ALT 27 U/L (12-78); SODIUM 139 mmol/L (136-145)
[2021-01-13 12:48] VITALS: BP 121/73
== END 2021-01-13 13:40 | disposition home or self-care (01) ==
LOC: ED 10:51
PROVIDERS: Emergency Medicine
DX: R51.9 Headache, unspecified (principal); Z91.041 Radiographic dye allergy status; Z88.1 Allergy status to other antibiotic agents; Z79.899 Other long term (current) drug therapy; Z79.2 Long term (current) use of antibiotics; Z79.82 Long term (current) use of aspirin; Z98.890 Other specified postprocedural states; Z90.49 Acquired absence of other specified parts of digestive tract; Z90.711 Acquired absence of uterus with remaining cervical stump; Z90.89 Acquired absence of other organs; Z98.51 Tubal ligation status; Z87.891 Personal history of nicotine dependence

== ENCOUNTER → 2021-03-01 | Outpatient (CLI) | payer OTHER ==
[2021-03-01 10:15] LABS: BASO % 0.6 % (0.0-1.0); EOS # 0.1 10*3/uL (0.0-0.4); EOS % 1.2 % (1.0-4.0); HEMATOCRIT 41.1 % (37.0-47.0); LYMPH # 2.7 10*3/uL (1.3-4.4); LYMPH % 40.8 % (27.0-41.0); MEAN CELL VOLUME 89.7 fl (81.0-99.0); MEAN CORPUSCULAR HGB 28.2 pg (27.0-31.0); MEAN CORPUSCULAR HGB CONC 31.4 g/dl (33.0-37.0); MEAN PLATELET VOLUME 9.3 fl (9.6-12.3); MONO # 0.5 10*3/uL (0.1-1.0); MONO % 7.1 % (3.0-9.0); NEUT # 3.3 10*3/uL (2.3-7.9); PLATELET COUNT AUTOMATED 287 10*3/uL (130-400); RED BLOOD COUNT 4.58 10*6/uL (4.10-5.10); RED CELL DISTRI WIDTH 13.7 % (0-14.5); WHITE BLOOD COUNT 6.7 10*3/uL (4.8-10.8)
[2021-03-01 10:21] LABS: ALKALINE PHOSPHATASE 79 U/L (45-117); BUN 13 mg/dl (7-24); CHLORIDE 114 mmol/L (98-107); CHOLESTEROL 283 mg/dL (<200); CREATININE 0.91 mg/dL (0.55-1.02); FREE T4 0.89 ng/dl (0.76-1.46); LDL CHOLESTEROL 183 mg/dL (9-159); LIPASE 101 U/L (73-393); POTASSIUM 4.6 mmol/L (3.5-5.1); SGOT/AST 12 IU/L (3-35); SGPT/ALT 34 U/L (12-78); SODIUM 144 mmol/L (136-145); THYROXINE (T4) TOTAL 8.5 ug/dl (4.8-13.9); TOTAL PROTEIN 7.2 gm/dL (6.4-8.2); TRIGLYCERIDES 228 mg/dl (<150)
== END | disposition home or self-care (01) ==
LOC: LAB 09:42
PROVIDERS: ATTEND Surgery
DX: E66.9 Obesity, unspecified (principal); Z79.899 Other long term (current) drug therapy

== ENCOUNTER → 2021-05-01 | Outpatient (CLI) | payer OTHER | END | disposition home or self-care (01) | LOC: RAD 08:53 | PROVIDERS: ATTEND Nurse Practitioner Family | DX: J44.1 Chronic obstructive pulmonary disease with (acute) exacerbation (principal); J34.89 Other specified disorders of nose and nasal sinuses; R05.9 Cough, unspecified; J02.9 Acute pharyngitis, unspecified; R53.83 Other fatigue; R06.2 Wheezing; K21.9 Gastro-esophageal reflux disease without esophagitis; R06.02 Shortness of breath ==

== ENCOUNTER → 2021-05-23 | Outpatient (CLI) | payer OTHER | END | disposition home or self-care (01) | LOC: COVID19 17:11 | PROVIDERS: ATTEND Internal Medicine | DX: Z11.52 Encounter for screening for COVID-19 (principal) ==

== ENCOUNTER 2021-07-22 15:09 | Emergency (ER) | payer OTHER ==
[~2021-07-22] VITALS: Ht 175.2 cm; Wt 126.1 kg
[2021-07-22 15:19] VITALS: BP 135/87
[2021-07-22] MEDS ORDERED: TYLENOL325 M1 PO (18:19)
[2021-07-22] MEDS ORDERED: NAPROXEN250 MG PO (18:19)
== END 2021-07-22 18:42 | disposition home or self-care (01) ==
LOC: ED 15:09
DX: S59.912A Unspecified injury of left forearm, initial encounter (principal); K21.9 Gastro-esophageal reflux disease without esophagitis; I10 Essential (primary) hypertension; J44.9 Chronic obstructive pulmonary disease, unspecified; Z88.1 Allergy status to other antibiotic agents; Z79.899 Other long term (current) drug therapy; Z79.82 Long term (current) use of aspirin; Z86.73 Personal history of transient ischemic attack (TIA), and cerebral infarction without residual deficits; Z87.891 Personal history of nicotine dependence; W00.0XXA Fall on same level due to ice and snow, initial encounter; Y93.89 Activity, other specified; Y92.89 Other specified places as the place of occurrence of the external cause; Y99.8 Other external cause status

== ENCOUNTER → 2021-07-26 | Outpatient (CLI) | payer OTHER ==
[~2021-07-26] MED LIST changes: +NAPROXEN250 MG PO; +TYLENOL325 M1 PO
== END | disposition home or self-care (01) ==
LOC: RAD 16:24
PROVIDERS: ATTEND Nurse Practitioner Family
DX: J98.11 Atelectasis (principal); R05.9 Cough, unspecified; R06.02 Shortness of breath; J44.1 Chronic obstructive pulmonary disease with (acute) exacerbation; U07.1 COVID-19

== ENCOUNTER → 2021-08-28 | Outpatient (CLI) | payer OTHER | END | disposition home or self-care (01) | LOC: LAB 13:30 | PROVIDERS: ATTEND Surgery | DX: Z01.812 Encounter for preprocedural laboratory examination (principal) ==

== ENCOUNTER → 2021-09-05 | Outpatient (CLI) | payer OTHER | END | disposition home or self-care (01) | LOC: ORTHO 11:06 → RAD 11:06 | PROVIDERS: ATTEND Orthopaedic Surgery | DX: M25.552 Pain in left hip (principal) ==

== ENCOUNTER → 2021-10-04 | Outpatient (CLI) | payer OTHER | END | disposition home or self-care (01) | LOC: CARD 10:34 | PROVIDERS: ATTEND Nurse Practitioner Family | DX: R94.31 Abnormal electrocardiogram [ECG] [EKG] (principal); R06.02 Shortness of breath; R00.2 Palpitations; M48.04 Spinal stenosis, thoracic region; G95.89 Other specified diseases of spinal cord ==

== ENCOUNTER → 2021-12-20 | Day surgery (SDC) | payer OTHER ==
[2021-12-18 11:03] LABS: BUN 17 mg/dl (7-24); CHLORIDE 108 mmol/L (98-107); CREATININE 0.95 mg/dL (0.55-1.02); POTASSIUM 4.1 mmol/L (3.5-5.1); SODIUM 141 mmol/L (136-145)
[~2021-12-20] VITALS: Ht 175.2 cm; Wt 124.3 kg
[~2021-12-20] MED LIST changes: +CRESTOR10 M1 PO; +DAIRY RELIE9000 UNI1 PO; +PROVIGIL100 MG PO
[2021-12-20 07:45] VITALS: BP 131/65
[2021-12-20 09:09] VITALS: BP 112/62
[2021-12-20 09:24] VITALS: BP 115/58
[2021-12-20 09:39] VITALS: BP 112/62
[2021-12-20 12:54] VITALS: BP 106/61
== END | disposition home or self-care (01) ==
LOC: SDC 12-18 11:00
PROVIDERS: ATTEND Orthopaedic Surgery
DX: G56.03 Carpal tunnel syndrome, bilateral upper limbs (principal); G60.8 Other hereditary and idiopathic neuropathies; J44.9 Chronic obstructive pulmonary disease, unspecified; K21.9 Gastro-esophageal reflux disease without esophagitis; F31.9 Bipolar disorder, unspecified; F41.9 Anxiety disorder, unspecified; F43.10 Post-traumatic stress disorder, unspecified; Z86.718 Personal history of other venous thrombosis and embolism; Z98.890 Other specified postprocedural states

== ENCOUNTER → 2022-02-12 | Day surgery (SDC) | payer OTHER ==
[~2022-02-12] VITALS: Ht 175.2 cm; Wt 124.3 kg
[2022-02-12 06:35] VITALS: BP 133/81
[2022-02-12 08:03] VITALS: BP 106/65
[2022-02-12 08:15] VITALS: BP 110/72
[2022-02-12 08:31] VITALS: BP 108/59
== END | disposition home or self-care (01) ==
LOC: SDC 02-08 08:45
PROVIDERS: ATTEND Orthopaedic Surgery
DX: G56.01 Carpal tunnel syndrome, right upper limb (principal); F31.9 Bipolar disorder, unspecified; J44.9 Chronic obstructive pulmonary disease, unspecified; F43.10 Post-traumatic stress disorder, unspecified; K21.9 Gastro-esophageal reflux disease without esophagitis; F41.9 Anxiety disorder, unspecified; E78.5 Hyperlipidemia, unspecified; E66.01 Morbid (severe) obesity due to excess calories; Z86.718 Personal history of other venous thrombosis and embolism; Z87.891 Personal history of nicotine dependence; Z79.899 Other long term (current) drug therapy

== ENCOUNTER → 2022-03-28 | Outpatient (CLI) | payer OTHER | END | disposition home or self-care (01) | LOC: RAD 07:52 | PROVIDERS: ATTEND Surgery | DX: K21.9 Gastro-esophageal reflux disease without esophagitis (principal) ==

== ENCOUNTER → 2022-05-23 | Outpatient (CLI) | payer OTHER ==
[2022-05-23 07:54] LABS: BASO # 0.1 10*3/uL (0.0-0.1); BASO % 0.8 % (0.0-1.0); EOS # 0.1 10*3/uL (0.0-0.4); EOS % 1.7 % (1.0-4.0); HEMATOCRIT 39.6 % (37.0-47.0); MEAN CELL VOLUME 91.2 fl (81.0-99.0); MEAN CORPUSCULAR HGB 29.3 pg (27.0-31.0); MEAN CORPUSCULAR HGB CONC 32.1 g/dl (33.0-37.0); MEAN PLATELET VOLUME 8.9 fl (9.6-12.3); MONO # 0.5 10*3/uL (0.1-1.0); MONO % 6.8 % (3.0-9.0); NEUT % 45.4 % (47.0-73.0); PLATELET COUNT AUTOMATED 247 10*3/uL (130-400); RED BLOOD COUNT 4.34 10*6/uL (4.10-5.10); RED CELL DISTRI WIDTH 13.1 % (0-14.5); WHITE BLOOD COUNT 6.6 10*3/uL (4.8-10.8)
[2022-05-23 11:08] LABS: ALKALINE PHOSPHATASE 84 U/L (45-117); BUN 18 mg/dl (7-24); CHLORIDE 111 mmol/L (98-107); CHOLESTEROL 212 mg/dL (<200); CREATININE 0.88 mg/dL (0.55-1.02); LDL CHOLESTEROL 116 mg/dL (9-159); POTASSIUM 4.1 mmol/L (3.5-5.1); SGOT/AST 16 IU/L (3-35); SGPT/ALT 27 U/L (12-78); SODIUM 141 mmol/L (136-145); TOTAL PROTEIN 7.2 gm/dL (6.4-8.2); TRIGLYCERIDES 228 mg/dl (<150)
== END | disposition home or self-care (01) ==
LOC: LAB 07:38
PROVIDERS: ATTEND Nurse Practitioner Family
DX: E78.5 Hyperlipidemia, unspecified (principal); I10 Essential (primary) hypertension; E55.9 Vitamin D deficiency, unspecified; R73.9 Hyperglycemia, unspecified

== ENCOUNTER → 2023-06-04 | Outpatient (CLI) | payer OTHER | END | disposition home or self-care (01) | LOC: CT 06-02 15:00 | PROVIDERS: ATTEND Specialist | DX: J32.0 Chronic maxillary sinusitis (principal); J32.3 Chronic sphenoidal sinusitis; M26.649 Arthritis of unspecified temporomandibular joint ==

== ENCOUNTER → 2023-08-07 | Outpatient (CLI) | payer OTHER ==
[2023-08-07 13:28] LABS: BASO # 0.1 10*3/uL (0.0-0.1); BASO % 0.7 % (0.0-1.0); EOS # 0.1 10*3/uL (0.0-0.4); EOS % 1.1 % (1.0-4.0); LYMPH # 3.3 10*3/uL (1.3-4.4); LYMPH % 45.4 % (27.0-41.0); MEAN CELL VOLUME 92.9 fl (81.0-99.0); MEAN CORPUSCULAR HGB 29.3 pg (27.0-31.0); MEAN CORPUSCULAR HGB CONC 31.5 g/dl (33.0-37.0); MEAN PLATELET VOLUME 8.6 fl (9.6-12.3); MONO # 0.4 10*3/uL (0.1-1.0); MONO % 5.9 % (3.0-9.0); NEUT # 3.4 10*3/uL (2.3-7.9); NEUT % 46.6 % (47.0-73.0); PLATELET COUNT AUTOMATED 250 10*3/uL (130-400); RED CELL DISTRI WIDTH 12.9 % (0-14.5); WHITE BLOOD COUNT 7.3 10*3/uL (4.8-10.8)
== END | disposition home or self-care (01) ==
LOC: LAB 13:05
PROVIDERS: ATTEND Internal Medicine Critical Care Medicine
DX: J30.9 Allergic rhinitis, unspecified (principal); G47.33 Obstructive sleep apnea (adult) (pediatric); Z68.38 Body mass index [BMI] 38.0-38.9, adult; Z86.16 Personal history of COVID-19; Z68.41 Body mass index [BMI] 40.0-44.9, adult

== ENCOUNTER 2023-08-22 10:07 | Emergency (ER) | payer OTHER ==
[~2023-08-22] VITALS: Ht 175.2 cm; Wt 113.4 kg
[2023-08-22 10:43] LABS: BASO % 0.7 % (0.0-1.0); EOS # 0.1 10*3/uL (0.0-0.4); EOS % 1.2 % (1.0-4.0); HEMATOCRIT 39.5 % (37.0-47.0); LYMPH # 2.6 10*3/uL (1.3-4.4); MEAN CORPUSCULAR HGB 29.8 pg (27.0-31.0); MEAN CORPUSCULAR HGB CONC 31.6 g/dl (33.0-37.0); MEAN PLATELET VOLUME 8.8 fl (9.6-12.3); MONO # 0.4 10*3/uL (0.1-1.0); NEUT # 2.8 10*3/uL (2.3-7.9); NEUT % 47.6 % (47.0-73.0); PLATELET COUNT AUTOMATED 290 10*3/uL (130-400); WHITE BLOOD COUNT 5.9 10*3/uL (4.8-10.8)
[2023-08-22 11:00] LABS: ACT PARTIAL THROMBO TIME 27.3 SECONDS (20.0-32.1)
[2023-08-22 11:01] LABS: ALKALINE PHOSPHATASE 88 U/L (46-116); BUN 16 mg/dl (9-23); CHLORIDE 110 mmol/L (98-107); LIPASE 34 U/L (12-53); POTASSIUM 4.1 mmol/L (3.4-5.1); SGPT/ALT 16 U/L (5-49)
[2023-08-22 11:02] LABS: ETHYL ALCOHOL < 3.0 mg/dl (<3)
[2023-08-22 11:55] VITALS: BP 114/63
[2023-08-22 12:49] LABS: BILIRUBIN Negative (Negative); BLOOD Negative (Negative); CLARITY Clear (Clear); COLOR Yellow (Yellow); GLUCOSE Negative (Negative); KETONE Negative (Negative); LEUKO ESTERASE Negative (Negative); NITRITE Negative (Negative); PH 5.5 (4.5-8.0); SPECIFIC GRAVITY 1.015 (1.001-1.030); UROBILINOGEN 0.2 E.U./dl (0.0-1.0)
[2023-08-22 13:02] LABS: URINE AMPHETAMINES Negative (1000ng/ml); URINE BARBITURATES Negative (200ng/ml); URINE BENZODIAZEPINES Negative (200ng/ml); URINE CANNABINOIDS (THC) Negative (50ng/ml); URINE COCAINE Negative (300ng/ml); URINE METHADONE Negative (300ng/ml); URINE OPIATES Negative (300ng/ml); URINE PHENCYCLIDINE Negative (25ng/ml)
[2023-08-22 13:15] LABS: BACTERIA 1+; EPITHELIAL CELLS 0-2; WBC 0-2 wbc/hpf (0-5)
[2023-08-22] MEDS ORDERED: MACROBID100 M1 PO (13:26)
== END 2023-08-22 13:35 | disposition home or self-care (01) ==
LOC: ED 10:07
PROVIDERS: Internal Medicine
DX: N39.0 Urinary tract infection, site not specified (principal); J45.909 Unspecified asthma, uncomplicated; F31.9 Bipolar disorder, unspecified; J44.9 Chronic obstructive pulmonary disease, unspecified; K21.9 Gastro-esophageal reflux disease without esophagitis; R10.2 Pelvic and perineal pain; Z79.899 Other long term (current) drug therapy; Z91.041 Radiographic dye allergy status; Z88.1 Allergy status to other antibiotic agents; Z86.718 Personal history of other venous thrombosis and embolism; Z90.49 Acquired absence of other specified parts of digestive tract; Z90.710 Acquired absence of both cervix and uterus; Z90.89 Acquired absence of other organs; Z98.51 Tubal ligation status; Z98.890 Other specified postprocedural states; Z87.891 Personal history of nicotine dependence

== ENCOUNTER 2024-04-03 00:13 | Emergency (ER) | payer OTHER ==
[~2024-04-03] VITALS: Ht 170.1 cm; Wt 113.4 kg
[~2024-04-03 00:13] MED LIST changes: +MACROBID100 M1 PO
[2024-04-03 00:36] VITALS: BP 132/82
== END 2024-04-03 01:08 | disposition home or self-care (01) ==
LOC: ED 00:13
DX: G89.18 Other acute postprocedural pain (principal); J44.9 Chronic obstructive pulmonary disease, unspecified; K21.9 Gastro-esophageal reflux disease without esophagitis; F31.9 Bipolar disorder, unspecified; Z86.718 Personal history of other venous thrombosis and embolism; Z91.041 Radiographic dye allergy status; Z88.1 Allergy status to other antibiotic agents; Z90.49 Acquired absence of other specified parts of digestive tract; Z90.89 Acquired absence of other organs; Z90.710 Acquired absence of both cervix and uterus; Z98.51 Tubal ligation status; Z98.890 Other specified postprocedural states; Z87.891 Personal history of nicotine dependence; Z53.29 Procedure and treatment not carried out because of patient's decision for other reasons

== ENCOUNTER → 2024-05-03 | Outpatient (CLI) | payer OTHER ==
[2024-05-03 08:04] LABS: BASO # 0.1 10*3/uL (0.0-0.1); BASO % 0.7 % (0.0-1.0); EOS # 0.2 10*3/uL (0.0-0.4); LYMPH % 39.4 % (27.0-41.0); MEAN CELL VOLUME 91.5 fl (81.0-99.0); MEAN CORPUSCULAR HGB 29.6 pg (27.0-31.0); MEAN CORPUSCULAR HGB CONC 32.3 g/dl (33.0-37.0); MONO # 0.6 10*3/uL (0.1-1.0); MONO % 8.2 % (3.0-9.0); NEUT # 3.7 10*3/uL (2.3-7.9); NEUT % 49.3 % (47.0-73.0); PLATELET COUNT AUTOMATED 275 10*3/uL (130-400); RED BLOOD COUNT 4.26 10*6/uL (4.10-5.10); RED CELL DISTRI WIDTH 13.1 % (0-14.5); WHITE BLOOD COUNT 7.6 10*3/uL (4.8-10.8)
[2024-05-03 08:47] LABS: ALKALINE PHOSPHATASE 77 U/L (46-116); BUN 23 mg/dl (9-23); CHLORIDE 109 mmol/L (98-107); CHOLESTEROL 273 mg/dL (<200); LDL CHOLESTEROL 178 mg/dL (9-159); POTASSIUM 3.8 mmol/L (3.4-5.1); SGPT/ALT 10 U/L (5-49); TOTAL PROTEIN 6.8 gm/dL (6.0-8.0); TRIGLYCERIDES 233 mg/dl (<150)
[2024-05-03 09:11] LABS: VITAMIN D, 25-HYDROXY 50.7 ng/mL (30-100)
== END | disposition home or self-care (01) ==
LOC: LAB 07:07 → US 07:30
PROVIDERS: ATTEND Nurse Practitioner Family
DX: K76.0 Fatty (change of) liver, not elsewhere classified (principal); R10.11 Right upper quadrant pain; E78.5 Hyperlipidemia, unspecified; R53.83 Other fatigue; I10 Essential (primary) hypertension; Z90.49 Acquired absence of other specified parts of digestive tract